=== PATIENT | female | born 1935 | race Caucasian/White ===

== ENCOUNTER → 2017-06-11 | Outpatient (CLI) | payer MEDICARE ==
--- NOTE | 2017-06-11 18:50 | XCELERA REPORT ---
[address] [address] Upper Extremity Venous Evaluation Name: OREN CHIN Age: 82 yrs Gender: Female : 1935 Patient Status: Outpatient Patient Location: Study Date: 06/11/2017 09:53 AM Procedure: Unilateral duplex scan of the left upper extremity veins was performed, including responses to compression and other maneuvers. Reason For Study: CELLULITIS LUE Ordering Physician: FREIDA MCLEOD Performed By: Radha Asher Left Sided Venous Evaluation Normal vessel filling wall to wall, compression and augmentation as well as Colour flow down to the forearm veins. Interpretation Summary No duplex evidence of DVT or obstruction in the left upper extremity. : FREIDA MCLEOD > Jon Schaffer
== END ==
LOC: SP 09:42
PROVIDERS: ATTEND Internal Medicine
DX: L03.114 Cellulitis of left upper limb (principal)
CPT/HCPCS: 93971

== ENCOUNTER → 2017-10-18 | Outpatient (CLI) | payer MEDICARE, BC ==
--- NOTE | 2017-10-18 13:04 | RADIOLOGY REPORT (SQ) ---
EXAM DESCRIPTION: HIP LEFT AP/LATERAL COMPLETED DATE/TIME: 10/18/2017 10:58 am REASON FOR STUDY: PAIN IN LEFT HIP M25.552 PAIN IN LEFT HIP COMPARISON: None. NUMBER OF VIEWS: Two views. TECHNIQUE: AP pelvis and additional frog-leg view of the left hip. LIMITATIONS: None. FINDINGS: MINERALIZATION: Osteoporotic LEFT HIP: No acute fracture or malalignment. There is advanced osteoarthritis with a [id number] ap pearance, high-grade left hip joint space narrowing, and moderate femoral head and acetabular rim bon y spurring. Subcortical cysts in the weight-bearing portion of the acetabulum and left femoral head. RIGHT HIP: No acute fracture or malalignment. There is moderate osteoarthritis at the right hip with joint space narrowing and acetabular rim and femoral head bony spurring. PUBIS AND ISCHIUM: No fracture. PELVIS: No fracture. Osteophytes at the bilateral anterior superior iliac spines. Mild vacuum pheno jenny at the SI joints bilaterally SACRUM: No fracture or dislocation. No worrisome bone lesions. LOWER LUMBAR SPINE: Advanced lower lumbar facet arthropathy SOFT TISSUES: No findings. OTHER: No other significant finding. IMPRESSION: No acute fracture. Advanced left hip osteoarthritis TECHNICAL DOCUMENTATION: JOB ID: [id number] [employer]- All Rights Reserved
== END ==
LOC: OD 10:43
PROVIDERS: ATTEND Internal Medicine
DX: M25.552 Pain in left hip (principal); M16.12 Unilateral primary osteoarthritis, left hip